=== PATIENT | female | born 2000 | race African-American/Black ===

== ENCOUNTER 2025-08-27 23:17 | Emergency (ER) | payer OTHER, SELFPAY ==
[2025-08-27 23:25] VITALS: BP 133/74; PULSE 84; RESP 16; TEMP 36.8; O2SAT 100; BMI 21.0
[2025-08-27 23:42] LABS: Hematocrit 32.6 % (37.0-47.0); Hemoglobin 10.9 g/dl (12.0-16.0); Imm Gran Abs Auto 0.01 X10*3/uL (0.00-0.03); Imm Gran Pct Auto 0.1 % (0.0-0.4); Lymphocytes Absolute Auto 4.1 X10*3/uL (1.2-4.9); MANUAL DIFF FLAG NO; Mean Corpuscular HGB Conc 33.4 g/dl (31.0-35.0); Mean Corpuscular Hemoglobin 28.9 pg (27.0-33.0); Mean Corpuscular Volume 86.5 fL (80.0-98.0); NRBC Abs Auto 0.000 X10*3/uL (0.0-0.012); NRBC Pct Auto 0.0 /100WBC (0.0-0.2); Platelet Count 172 X10*3/uL (160-400); Red Blood Count 3.77 X10*6/uL (4.20-5.50); White Blood Count 9.0 X10*3/uL (4.8-10.8)
[2025-08-28 00:04] LABS: Alanine Aminotransferase 15 U/L (0-31); Albumin Level 4.5 g/dL (3.5-5.0); Alkaline Phosphatase 46 U/L (39-117); Anion Gap 11 (12-20); Aspartate Amino Transferase 19 U/L (5-31); Blood Urea Nitrogen 8 mg/dL (9-16); Calcium 9.0 mg/dL (8.4-10.2); Carbon Dioxide 22 mmol/L (22-29); Chloride 109 mmol/L (96-108); Creatinine Clr Calc Pharmacy 84.3; Estimated Glomerular Filt Rate > 60; Potassium 4.2 mmol/L (3.3-5.1); Sodium 138 mmol/L (135-145); Total Protein 7.2 g/dL (6.5-8.0)
--- NOTE | 2025-08-28 00:06 | ED.GENADULT ---
HPI - General Adult General Chief complaint: General Medical Stated complaint: General Medical Time Seen by Provider: 08/27/25 23:51 History of Present Illness HPI narrative: Patient is a 25-year-old female presents today with having her last menstrual period about 6 weeks ago. [facility]. Has no abdominal pain. No fever no chills positive nausea. This is a 3rd there has been no ectopic 2 live births patient from home no vaginal bleeding just feel very nauseous not able to eat well came to the ED. patient is still have not set up with an OBGYN yet but is planning to set up with [facility] where her other 2 child was born Related Data Allergies Allergy/AdvReac Type Severity Reaction Status Date / Time No Known Allergies Allergy Verified 08/27/25 23:25 Review of Systems Review of Systems: Positive nausea Yes all other systems are reviewed and are negative [facility] Past Medical History Attestation statement: The following information was validated with the patient. Physical Exam ED Exam Exam: Appearance: Alert. Oriented X3. No acute distress. Eyes: Pupils equal, round and reactive to light. ENT: Pharynx normal. Neck: Normal inspection. Neck supple. No lymph nodes noted. No crepitus CVS: Normal heart rate and rhythm. Pulses normal. Normal S1 and S2 Respiratory: No respiratory distress. Breath sounds normal. No Wheezing. No rales Abdomen: Soft and nontender. No rigidity. No distention. good BS x4 Skin: Skin warm and dry. Normal skin color. Normal skin turgor. Extremities: No lower extremity edema. Neurovascular intact to all extremities. No Lacerations. No Rash Neuro: Oriented X 3. No motor deficit. No sensory deficit. Moving all extermities. No slurred speech Vital Signs: Vital Signs - 24 hr 08/27/25 23:25 Temperature 98.3 F Pulse Rate 84 Respiratory Rate 16 Blood Pressure 133/74 Pulse Oximetry 100 Oxygen Delivery Method Room Air BMI result Body Mass Index 21.0 Medications Administered Discontinued Medications Generic Name Dose Route Start Last Admin Trade Name Freq PRN Reason Stop Dose Admin Sodium Chloride 1,000 mls @ 999 mls/hr 08/28/25 00:15 08/28/25 00:43 Ns IV 08/28/25 01:15 999 mls/hr .Q1H1M OLEGARIO Administration Sodium Chloride 1,000 mls @ 999 mls/hr 08/28/25 00:15 08/28/25 00:43 Ns IV 08/28/25 01:15 999 mls/hr .Q1H1M OLEGARIO Administration Medical Decision Making Medical Decision Making [facility] Narrative: Well-appearing no acute distress. Patient's quant came back at over 10,000 consistent with . Abdomen soft nontender. Unable to tolerate good amount of fluid will give patient IV fluids here in the emergency department and monitored. Given IV fluids symptom improved. No longer nauseous was able to tolerate apple juice. Wants to go home. Patient needs to follow-up with OBGYN outpatient Differential Diagnosis Differential Diagnoses: The differential diagnosis associated with the presentation includes Admission/Observation Consideration of admission/observation: Escalation of care including admission/observation considered No need to stay tolerating p.o. well-appearing Lab Data [facility] Lab Attestation statement: I reviewed the patient's lab results. 08/27/25 23:37 08/27/25 23:37 Labs: Lab Results 08/27/25 Range/Units 23:37 WBC 9.0 (4.8-10.8) X10*3/uL RBC 3.77 L (4.20-5.50) X10*6/uL Hgb 10.9 L (12.0-16.0) g/dl Hct 32.6 L (37.0-47.0) % MCV 86.5 (80.0-98.0) fL MCH 28.9 (27.0-33.0) pg MCHC 33.4 (31.0-35.0) g/dl RDW 16.2 H (11.0-16.0) % Plt Count 172 (160-400) X10*3/uL MPV 10.8 (9.4-12.3) fL Immature Gran % (Auto) 0.1 (0.0-0.4) % Neut % (Auto) 42.0 L (45-73) % Lymph % (Auto) 44.9 H (20-40) % Mclean % (Auto) 7.6 (2-11) % Eos % (Auto) 4.5 H (0-4) % Baso % (Auto) 0.9 (0-2) % Lymph # (Auto) 4.1 (1.2-4.9) X10*3/uL Mclean # (Auto) 0.7 (0.1-1.2) X10*3/uL Eos # (Auto) 0.4 (0.0-0.4) X10*3/uL Baso # (Auto) 0.1 (0.0-0.2) X10*3/uL Abs Immat Gran (auto) 0.01 (0.00-0.03) X10*3/uL Absolute Neuts (auto) 3.8 (2.0-8.3) x10*3/uL Absolute Nucleated RBC 0.000 (0.0-0.012) X10*3/uL Nucleated RBC % (auto) 0.0 (0.0-0.2) /100WBC Sodium 138 (135-145) mmol/L Potassium 4.2 (3.3-5.1) mmol/L Chloride 109 H (96-108) mmol/L Carbon Dioxide 22 (22-29) mmol/L Anion Gap 11 L (12-20) BUN 8 L (9-16) mg/dL Creatinine 0.82 (0.5-1.4) mg/dL Estim Creat Clear Calc 84.3 Estimated GFR > 60 Random Glucose 97 (60-115) mg/dL Calcium 9.0 (8.4-10.2) mg/dL Total Bilirubin 0.3 (0.0-1.0) mg/dL AST 19 (5-31) U/L ALT 15 (0-31) U/L Alkaline Phosphatase 46 (39-117) U/L Total Protein 7.2 (6.5-8.0) g/dL Albumin 4.5 (3.5-5.0) g/dL Beta HCG, Quant 64352 mIU/mL Discharge Plan Discharge Clinical Impression: Hyperemesis arising during Patient Disposition: Home, Self-Care Instructions: Hyperemesis Gravidarum (ED) Referrals: [facility] [Outside] - 09/01/25 Stand Alone Forms: Work/School Release
[2025-08-28 02:21] VITALS: BP 130/81; PULSE 65; RESP 16; O2SAT 97
[2025-08-28 03:25] VITALS: BP 130/81; PULSE 65; RESP 16; TEMP -17.7; TEMP 0; O2SAT 97
== END 2025-08-28 03:28 | disposition home or self-care (01) ==
PROVIDERS: Emergency Provider Emergency Medicine Emergency Medical Services
DX: O21.0 Mild hyperemesis gravidarum (principal); Z3A.01 Less than 8 weeks gestation of pregnancy
CPT/HCPCS: 36415; 80053; 84702; 85025; 86850; 86900; 86901; 96360; 96361; 99284